=== PATIENT | male | born 1955 | race Caucasian/White ===

== ENCOUNTER 2017-09-25 15:27 | Emergency (ER) | payer OTHER ==
[2017-09-25 15:34] VITALS: BP 165/93
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
[2017-09-25] MEDS ORDERED: ORPHENADRINE CITRATE 30 MG/ML VIAL IM ONE (16:20)
[2017-09-25] MEDS ORDERED: KETOROLAC TROMETHAMINE 60 MG/2 ML VIAL IM ONE ×2 (16:20→16:23)
[2017-09-25] MEDS ORDERED: ORPHENADRINE CITRATE 30 MG/ML VIAL ONE (16:23)
== END 2017-09-25 16:40 | disposition home or self-care (01) ==
LOC: ER 15:27
DX: S39.012A Strain of muscle, fascia and tendon of lower back, initial encounter (principal); Z87.442 Personal history of urinary calculi; V53.5XXA Driver of pick-up truck or van injured in collision with car, pick-up truck or van in traffic accident, initial encounter